=== PATIENT | male | born 1990 | race Caucasian/White ===

== ENCOUNTER 2016-12-27 19:16 | Emergency (ER) | payer OTHER | END 2016-12-27 21:46 | disposition home or self-care (01) | LOC: ER 19:16 | DX: R07.89 Other chest pain (principal); R07.81 Pleurodynia; X50.0XXA Overexertion from strenuous movement or load, initial encounter; Y92.009 Unspecified place in unspecified non-institutional (private) residence as the place of occurrence of the external cause; F17.210 Nicotine dependence, cigarettes, uncomplicated | CPT/HCPCS: 96372; 99283-25 ==